=== PATIENT | male | born 1935 | race Two or more races ===

== ENCOUNTER 2017-10-11 13:53 | Inpatient (IN) | payer MEDICARE ==
[~2017-10-11] VITALS: Ht 180.3 cm; Wt 77.6 kg
--- NOTE | 2017-10-11 14:00 | NUR ---
BB SON FOR PSYCH EVAL; PT WAS TALKING TO PHONE COMPANY/BILLING DEPT, AND MENTIONED SOMETHING ABT "HURTING HIMSELF" PER SON. 2 MOS AGO. NAD NOTED, VSS, RESP EVEN AND UNLABORED, PT WAS PUT ON MONITOR, WAITING FOR MD BATRES.
[2017-10-11 14:43] LABS: BASOPHILS % (AUTO) 0.7 % (0.0-2.0); EOSINOPHILS % (AUTO) 4.7 % (0.0-6.0); HEMATOCRIT 32 % (39-51); HEMOGLOBIN 10.6 g/dL (13.5-17.5); LYMPHOCYTES % (AUTO) 15.9 % (20.0-44.0); MEAN CORPUSCULAR HGB CONC 34 g/dl (31.0-36.0); MEAN CORPUSCULAR VOLUME 81 fL (80-96); MONOCYTES # (AUTO) 0.7 /CMM (0.1-1.30); MONOCYTES % (AUTO) 11.2 % (2.0-12.0); NEUTROPHILS # (AUTO) 4.5 /CMM (1.8-8.9); NEUTROPHILS % (AUTO) 67.5 % (43.0-81.0); PLATELET COUNT (AUTO) 169 /CMM (150-450); RDW COEFFICIENT OF VARIATION 15.8 (11.5-15.0); WHITE BLOOD COUNT (AUTO) 6.5 K/uL (4.3-11.0)
[2017-10-11 14:48] LABS: APPEARANCE,URINE Clear (CLEAR); BILIRUBIN,URINE Negative (NEGATIVE); BLOOD, URINE Negative Ery/uL (NEGATIVE); COLOR,URINE Yellow (YELLOW); KETONES,URINE Negative (NEGATIVE); LEUKOCYTE ESTERASE ,URINE Negative (NEGATIVE); NITRITE, URINE Negative (NEGATIVE); PH,URINE 5.5 (5.0-8.0); PROTEIN,URINE 100 mg/dl (NEGATIVE); UGLUCOSE Negative (NEGATIVE); UROBILINOGEN,URINE 0.2 EU/dL (0.2)
[2017-10-11 14:51] LABS: CALCIUM, SERUM 9.7 mg/dL (8.5-10.1); CARBON DIOXIDE 27 mmol/L (21-32); CHLORIDE 108 mmol/L (98-107); CREATININE 1.3 mg/dL (0.6-1.3); GLUCOSE 109 mg/dL (74-106); POTASSIUM 3.9 mmol/L (3.5-5.1); RBC,URINE 0-2 /HPF (0-2); SODIUM SERUM 143 mmol/L (136-145); UREA NITROGEN, BLOOD 24 mg/dL (7-18)
[2017-10-11 14:52] LABS: BACTERIA,URINE None seen /HPF (None Seen); HYALINE CASTS, URINE Few /LPF (None Seen); SQUAMOUS EPITHELIAL CELL,UR Rare /HPF (None Seen); WBC,URINE 0-3 /HPF (0-3)
--- NOTE | 2017-10-11 14:54 | NUR ---
Called Cez[facility] VILLARREALW for psych evaluation.
[2017-10-11 14:56] LABS: ACETAMINOPHEN < 2 ug/ml (10-30); ALANINE AMINOTRANSFERASE 15 U/L (12-78); ALBUMIN 3.5 g/dL (3.4-5.0); ALCOHOL, BLOOD < 3 mg/dL (0-0); ALKALINE PHOSPHATASE 93 U/L (46-116); ASPARTATE AMINOTRANSFERASE 14 U/L (15-37); BILIRUBIN,DIRECT 0.1 mg/dL (0.0-0.2); BILIRUBIN,TOTAL 0.5 mg/dL (0.2-1.0); SALICYLATE 0.4 mg/dL (2.8-20.0); TOTAL PROTEIN, SERUM 6.9 g/dL (6.4-8.2)
[2017-10-11 15:16] LABS: THYROID STIMULATING HORMONE 2.392 uIU/mL (0.358-3.74)
[2017-10-11] MEDS ORDERED: PRAV40TA3 PO (16:54)
[2017-10-11] MEDS ORDERED: LORA0.5T PO (16:54)
[2017-10-11] MEDS ORDERED: FERR325T23 PO (16:54)
[2017-10-11] MEDS ORDERED: BENA20TA9 PO (16:54)
[2017-10-11] MEDS ORDERED: TAMS0.4C34 PO (16:54)
[2017-10-11] MEDS ORDERED: FOLI1TAB16 PO (16:54)
[2017-10-11] MEDS ORDERED: LEVO75TA7 PO (16:54)
[2017-10-11] MEDS ORDERED: CARV12.52 PO (16:54)
[2017-10-11] MEDS ORDERED: AMLO10TA6 PO (16:54)
[2017-10-11] MEDS ORDERED: ALPRAZOLAM 0.25 MG TABLET PO ONE (17:00)
[2017-10-11] MEDS ORDERED: ALPRAZOLAM 0.25 MG TABLET ONE (17:00)
--- NOTE | 2017-10-11 17:30 | NUR ---
GPS/RN PATIENT ADMITTED ON A 5150 HOLD FOR GD UNDER HE CARE OF DR KIRAN HINSON. BOTH DR'S AWARE OF NEW ADMISSION. DR HINSON AWARE OF NEED TO RECONCILE MEDS IN SYSTEM. PER HOLD PATIENT IS DELUSIONAL, DISORGANIZED, PARANOID AND IS EXTREMELY AGITATED OVER LOSS OF CONTROL OVER HIS LIFE AND UNABLE TO PROVIDE CARE FOR HIMSELF. UPON FACE TO FACE ASSESSMENT, PATIENT IS ALERT AND ORIENTED X 1-2, STABLE CONDITION, DISORGANIZED, CONFUSED AND HOSTILE. BELONGINGS AND VALUABLE COLLECTED, SKIN INTACT, PATIENT DENIES SI/HI. AT THIS TIME PATIENT IS IN ROOM AND IS ANXIOUS WITH PERIODS OF AGITATION BUT COOPERATIVE WITH ENCOURAGEMENT AND REDIRECTABLE. WILL CONTINUE TO MONITOR Q 15 MIN FOR SAFETY AND BEHAVIOR.
[2017-10-11] MEDS ORDERED: MAG HYDROX/AL HYDROX/SIMETH 30 ML UDC PO PRN (18:00)
[2017-10-11] MEDS ORDERED: MAGNESIUM HYDROXIDE 30 ML UDC PO PRN (18:00)
[2017-10-11] MEDS ORDERED: ACETAMINOPHEN 325 MG TABLET PO PRN (18:00)
[2017-10-11 18:55] VITALS: BP 162/77
[2017-10-11 20:26] VITALS: BP 120/68
[2017-10-11] MEDS: TAMSULOSIN 0.4 MG CAP.SR.24H PO SCH (22:00)
[2017-10-11] MEDS: ATORVASTATIN 40 MG TABLET PO SCH (22:00)
--- NOTE | 2017-10-12 01:41 | NUR ---
GPS RN NOTES PT. REFUSED NIGHT MEDS FLOMAX,LIPITOR, ENCOURAGED EXPLIANE RISKS AND BENEFITS, STILL REFUSED.
[2017-10-12 06:46] LABS: ALANINE AMINOTRANSFERASE 18 U/L (12-78); ALBUMIN 3.3 g/dL (3.4-5.0); ALKALINE PHOSPHATASE 77 U/L (46-116); ASPARTATE AMINOTRANSFERASE 17 U/L (15-37); BILIRUBIN,TOTAL 0.5 mg/dL (0.2-1.0); CALCIUM, SERUM 8.7 mg/dL (8.5-10.1); CARBON DIOXIDE 24 mmol/L (21-32); CHLORIDE 109 mmol/L (98-107); CREATININE 1.2 mg/dL (0.6-1.3); GLUCOSE 86 mg/dL (74-106); POTASSIUM 3.6 mmol/L (3.5-5.1); SODIUM SERUM 140 mmol/L (136-145); TOTAL PROTEIN, SERUM 6.5 g/dL (6.4-8.2); UREA NITROGEN, BLOOD 22 mg/dL (7-18)
[2017-10-12 07:10] LABS: CHOLESTEROL 134 mg/dL (<200); HDL CHOLESTEROL 55 mg/dL (40-60); LDL 60 mg/dL (0-99); TRIGLYCERIDES 82 mg/dL (30-150)
[2017-10-12 08:00] VITALS: BP 140/55
[2017-10-12] MEDS: LEVOTHYROXINE SODIUM 75 MCG TABLET PO SCH (08:58)
[2017-10-12] MEDS: FERROUS SULFATE (325 MG) 325 MG/TAB TABLET PO SCH ×2 (08:58→16:52)
[2017-10-12] MEDS: FOLIC ACID 1 MG TABLET PO SCH (08:58)
[2017-10-12] MEDS: BENAZEPRIL HCL 20 MG TABLET PO SCH (08:59)
[2017-10-12] MEDS: CARVEDILOL 12.5 MG TABLET PO SCH ×2 (08:59→16:52)
[2017-10-12] MEDS: AMLODIPINE BESYLATE 10 MG TABLET PO SCH (09:00)
[2017-10-12 16:00] VITALS: BP 136/63
--- NOTE | 2017-10-12 16:20 | NUR ---
ERROL spoke with pts son Andrew [phone] who confirmed pt will return the [facility] at [address] [address] . Pts son also provided SW with collateral information and informed SW that he is pts DPOA. ERROL requested DPOA documentation from pts son who agreed to email to ERROL.
[2017-10-12] MEDS: risperiDONE 1 MG TABLET PO SCH (18:30)
[2017-10-12 20:11] VITALS: BP 145/71
[2017-10-12] MEDS: ATORVASTATIN 40 MG TABLET PO SCH (21:31)
[2017-10-12] MEDS: TAMSULOSIN 0.4 MG CAP.SR.24H PO SCH (21:31)
[2017-10-12] MEDS: TEMAZEPAM 7.5 MG CAPSULE PO PRN (23:50)
--- NOTE | 2017-10-13 05:37 | NUR ---
GPS RN NOTES AROUND 0500 OBSERVED PT. LEFT UPPER ARM SKIN TEAR NOTED , CLEANSE WITH NS AND COVERED WITH STRIE STRIPS SUPERVISIOR / CHARGE NURSE AWARE NO ACUTE DISTRESS NOTED , PT. RESTING HIS BED .
[2017-10-13 08:00] VITALS: BP 148/62
[2017-10-13] MEDS: FOLIC ACID 1 MG TABLET PO SCH (08:09)
[2017-10-13] MEDS: risperiDONE 1 MG TABLET PO SCH ×2 (08:09→16:08)
[2017-10-13] MEDS: FERROUS SULFATE (325 MG) 325 MG/TAB TABLET PO SCH ×2 (08:09→16:08)
[2017-10-13] MEDS: AMLODIPINE BESYLATE 10 MG TABLET PO SCH (08:09)
[2017-10-13] MEDS: LEVOTHYROXINE SODIUM 75 MCG TABLET PO SCH (08:09)
[2017-10-13] MEDS: CARVEDILOL 12.5 MG TABLET PO SCH ×2 (08:10→16:08)
[2017-10-13] MEDS: BENAZEPRIL HCL 20 MG TABLET PO SCH (08:10)
--- NOTE | 2017-10-13 09:05 | NUR ---
ERROL received DPOA documentation via email from pts son London Olson [email or web address] SW will place DPOA documentation in pts chart.
--- NOTE | 2017-10-13 10:34 | NUR ---
INITIAL DISCHARGE PLAN: Per pts son, pt will return to [facility] at [address], [place] [address] . ERROL will help form a safe and proper discharge in collaboration with MD and pts son.
[2017-10-13 16:08] VITALS: BP 141/56
[2017-10-13 20:00] VITALS: BP 160/64
[2017-10-13] MEDS: TEMAZEPAM 7.5 MG CAPSULE PO PRN (21:42)
[2017-10-13] MEDS: ATORVASTATIN 40 MG TABLET PO SCH (21:42)
[2017-10-13] MEDS: TAMSULOSIN 0.4 MG CAP.SR.24H PO SCH (21:42)
[2017-10-14 08:16] VITALS: BP 158/74
[2017-10-14] MEDS: risperiDONE 1 MG TABLET PO SCH ×2 (08:57→16:31)
[2017-10-14] MEDS: LEVOTHYROXINE SODIUM 75 MCG TABLET PO SCH (08:57)
[2017-10-14] MEDS: FERROUS SULFATE (325 MG) 325 MG/TAB TABLET PO SCH ×2 (08:57→16:31)
[2017-10-14] MEDS: CARVEDILOL 12.5 MG TABLET PO SCH ×2 (08:58→16:31)
[2017-10-14] MEDS: AMLODIPINE BESYLATE 10 MG TABLET PO SCH (08:58)
[2017-10-14] MEDS: BENAZEPRIL HCL 20 MG TABLET PO SCH (08:58)
[2017-10-14] MEDS: FOLIC ACID 1 MG TABLET PO SCH (08:58)
[2017-10-14 16:18] VITALS: BP 145/73
[2017-10-14 20:00] VITALS: BP 155/77
[2017-10-14] MEDS: TAMSULOSIN 0.4 MG CAP.SR.24H PO SCH (21:48)
[2017-10-14] MEDS: ATORVASTATIN 40 MG TABLET PO SCH (21:48)
[2017-10-14] MEDS: TEMAZEPAM 7.5 MG CAPSULE PO PRN (21:49)
[2017-10-15 08:00] VITALS: BP 139/56
[2017-10-15] MEDS: FOLIC ACID 1 MG TABLET PO SCH (08:32)
[2017-10-15] MEDS: risperiDONE 0.25 MG TABLET PO SCH ×2 (08:32→17:27)
[2017-10-15] MEDS: BENAZEPRIL HCL 20 MG TABLET PO SCH (08:32)
[2017-10-15] MEDS: AMLODIPINE BESYLATE 10 MG TABLET PO SCH (08:33)
[2017-10-15] MEDS: RIVASTIGMINE TARTRATE 1.5 MG CAPSULE PO SCH ×2 (08:33→17:27)
[2017-10-15] MEDS: LEVOTHYROXINE SODIUM 75 MCG TABLET PO SCH (08:33)
[2017-10-15] MEDS: CARVEDILOL 12.5 MG TABLET PO SCH ×2 (08:33→17:28)
[2017-10-15] MEDS: FERROUS SULFATE (325 MG) 325 MG/TAB TABLET PO SCH ×2 (08:33→17:27)
[2017-10-15 16:04] VITALS: BP 162/76
[2017-10-15] MEDS: TAMSULOSIN 0.4 MG CAP.SR.24H PO SCH (21:41)
[2017-10-15] MEDS: ATORVASTATIN 40 MG TABLET PO SCH (21:41)
[2017-10-15] MEDS: LORAZEPAM 0.5 MG TABLET PO PRN (21:42)
[2017-10-15] MEDS: TEMAZEPAM 7.5 MG CAPSULE PO PRN (23:48)
[2017-10-16 09:09] VITALS: BP 137/50
[2017-10-16] MEDS: BENAZEPRIL HCL 20 MG TABLET PO SCH (10:03)
[2017-10-16] MEDS: AMLODIPINE BESYLATE 10 MG TABLET PO SCH (10:03)
[2017-10-16] MEDS: FERROUS SULFATE (325 MG) 325 MG/TAB TABLET PO SCH ×2 (10:04→17:45)
[2017-10-16] MEDS: RIVASTIGMINE TARTRATE 1.5 MG CAPSULE PO SCH ×2 (10:04→17:46)
[2017-10-16] MEDS: LEVOTHYROXINE SODIUM 75 MCG TABLET PO SCH (10:04)
[2017-10-16] MEDS: risperiDONE 0.25 MG TABLET PO SCH ×2 (10:04→17:45)
[2017-10-16] MEDS: FOLIC ACID 1 MG TABLET PO SCH (10:04)
[2017-10-16] MEDS: CARVEDILOL 12.5 MG TABLET PO SCH ×2 (10:05→17:46)
[2017-10-16 15:43] VITALS: BP 146/76
[2017-10-16 20:01] VITALS: BP 143/68
[2017-10-16] MEDS: ATORVASTATIN 40 MG TABLET PO SCH (21:15)
[2017-10-16] MEDS: TAMSULOSIN 0.4 MG CAP.SR.24H PO SCH (21:15)
[2017-10-16] MEDS: TEMAZEPAM 7.5 MG CAPSULE PO PRN (22:02)
[2017-10-17 08:00] VITALS: BP 132/65
[2017-10-17] MEDS: FOLIC ACID 1 MG TABLET PO SCH (08:20)
[2017-10-17] MEDS: RIVASTIGMINE TARTRATE 1.5 MG CAPSULE PO SCH ×2 (08:20→16:01)
[2017-10-17] MEDS: LEVOTHYROXINE SODIUM 75 MCG TABLET PO SCH (08:21)
[2017-10-17] MEDS: risperiDONE 0.25 MG TABLET PO SCH ×2 (08:21→16:01)
[2017-10-17] MEDS: BENAZEPRIL HCL 20 MG TABLET PO SCH (08:21)
[2017-10-17] MEDS: AMLODIPINE BESYLATE 10 MG TABLET PO SCH (08:22)
[2017-10-17] MEDS: FERROUS SULFATE (325 MG) 325 MG/TAB TABLET PO SCH ×2 (08:22→16:01)
[2017-10-17] MEDS: CARVEDILOL 12.5 MG TABLET PO SCH ×2 (08:23→16:56)
--- NOTE | 2017-10-17 16:56 | NUR ---
GPS/RN PATIENT REFUSED TO ALLOW STAFF TO TAKE VITAL SIGNS, COULD NOT ADMINISTER CARVEDILOL 12.5 MG DUE TO NO BP READING. WILL CONTINUE TO MONITOR.
[2017-10-17 20:15] VITALS: BP 176/82
[2017-10-17 21:00] VITALS: BP 144/72
[2017-10-17] MEDS: TEMAZEPAM 7.5 MG CAPSULE PO PRN (21:58)
[2017-10-17] MEDS: TAMSULOSIN 0.4 MG CAP.SR.24H PO SCH (22:06)
[2017-10-17] MEDS: ATORVASTATIN 40 MG TABLET PO SCH (22:07)
[2017-10-18 08:02] VITALS: BP 150/73
[2017-10-18] MEDS: RIVASTIGMINE TARTRATE 1.5 MG CAPSULE PO SCH ×2 (08:27→16:39)
[2017-10-18] MEDS: BENAZEPRIL HCL 20 MG TABLET PO SCH (08:27)
[2017-10-18] MEDS: FOLIC ACID 1 MG TABLET PO SCH (08:27)
[2017-10-18] MEDS: AMLODIPINE BESYLATE 10 MG TABLET PO SCH (08:28)
[2017-10-18] MEDS: LEVOTHYROXINE SODIUM 75 MCG TABLET PO SCH (08:28)
[2017-10-18] MEDS: CARVEDILOL 12.5 MG TABLET PO SCH ×2 (08:28→16:40)
[2017-10-18] MEDS: FERROUS SULFATE (325 MG) 325 MG/TAB TABLET PO SCH ×2 (08:28→16:40)
[2017-10-18] MEDS: risperiDONE 1 MG TABLET PO SCH ×2 (09:57→16:39)
--- NOTE | 2017-10-18 13:58 | NUR ---
ERROL contacted the [facility] [id number] [place] [address], [place] [address] to confirm pts return to the facility. Per Karla Zhang, Inspector Technician she would like to come and assess pt closer to his discharge date; for re admittance to their facility. ERROL will follow up with facility staff in a timely manner.
[2017-10-18 16:28] VITALS: BP 140/70
[2017-10-18 20:22] VITALS: BP_SYST 142; BP_SYST 163; BP_DIAS 73
[2017-10-18] MEDS: LORAZEPAM 0.5 MG TABLET PO PRN (20:26)
--- NOTE | 2017-10-18 20:26 | NUR ---
GPS-RN PATIENT IS ANXIOUS AND RESTLESS. VSS. ADMINISTERED ATIVAN 1MG PO ORDERED. WILL CONTINUE TO MONITOR Q15MIN ROUNDS FOR SAFETY.
[2017-10-18] MEDS: TAMSULOSIN 0.4 MG CAP.SR.24H PO SCH (21:00)
[2017-10-18] MEDS: ATORVASTATIN 40 MG TABLET PO SCH (21:00)
[2017-10-18] MEDS: TEMAZEPAM 7.5 MG CAPSULE PO PRN (21:48)
[2017-10-19 08:14] VITALS: BP 130/59
[2017-10-19] MEDS: FERROUS SULFATE (325 MG) 325 MG/TAB TABLET PO SCH ×2 (08:55→16:44)
[2017-10-19] MEDS: FOLIC ACID 1 MG TABLET PO SCH (08:55)
[2017-10-19] MEDS: LEVOTHYROXINE SODIUM 75 MCG TABLET PO SCH (08:55)
[2017-10-19] MEDS: AMLODIPINE BESYLATE 10 MG TABLET PO SCH (08:55)
[2017-10-19] MEDS: BENAZEPRIL HCL 20 MG TABLET PO SCH (08:55)
[2017-10-19] MEDS: CARVEDILOL 12.5 MG TABLET PO SCH ×2 (08:55→16:44)
[2017-10-19] MEDS: RIVASTIGMINE TARTRATE 1.5 MG CAPSULE PO SCH ×2 (08:55→16:44)
[2017-10-19] MEDS: risperiDONE 1 MG TABLET PO SCH ×2 (08:55→16:43)
--- NOTE | 2017-10-19 11:32 | NUR ---
SW contacted pts psychiatrist, Dr. Honeycutt (via text) for discharge planning purposes. SW inquired about pts discharge plan. SW will follow up.
[2017-10-19 15:41] VITALS: BP 142/67
[2017-10-19 20:39] VITALS: BP 132/68
[2017-10-19] MEDS: ATORVASTATIN 40 MG TABLET PO SCH (21:07)
[2017-10-19] MEDS: TAMSULOSIN 0.4 MG CAP.SR.24H PO SCH (21:07)
[2017-10-19] MEDS: TEMAZEPAM 7.5 MG CAPSULE PO PRN (21:51)
[2017-10-20 07:51] VITALS: BP 127/55
[2017-10-20] MEDS: LEVOTHYROXINE SODIUM 75 MCG TABLET PO SCH (08:10)
[2017-10-20] MEDS: FERROUS SULFATE (325 MG) 325 MG/TAB TABLET PO SCH ×2 (08:10→15:57)
[2017-10-20] MEDS: risperiDONE 1 MG TABLET PO SCH ×2 (08:10→15:58)
[2017-10-20] MEDS: RIVASTIGMINE TARTRATE 1.5 MG CAPSULE PO SCH ×2 (08:10→15:57)
[2017-10-20] MEDS: FOLIC ACID 1 MG TABLET PO SCH (08:10)
[2017-10-20] MEDS: AMLODIPINE BESYLATE 10 MG TABLET PO SCH ×3 (09:00→16:31)
[2017-10-20] MEDS: BENAZEPRIL HCL 20 MG TABLET PO SCH ×2 (09:00→15:56)
[2017-10-20] MEDS: CARVEDILOL 12.5 MG TABLET PO SCH ×2 (09:00→15:53)
--- NOTE | 2017-10-20 09:00 | NUR ---
GPS/RN UNABLE TO ADMINISTER 0900 BP MEDS( AMLODIPINE 10 MG, BENAZAPRIL 20 MG, COREG 12.5 MG) DUE TO DECREASED BP OF 127/55. WILL CONTINUE TO MONITOR.
--- NOTE | 2017-10-20 11:42 | NUR ---
ERROL met with Karla Zhang and Diego from [facility], [address] [place] [id number] after pts assessment. Per Diego, [employer] Technician she agreed to accept pt into their memory care unit on Tuesday due to room availability. ERROL discussed Dr. Honeycutt's discharge orders with Karla and [employer], however they stated not being sure if they had a bed available in the memory unit, "until we get back to the office." Diego agreed to contact ERROL tomorrow morning with an update regarding pts discharge plan. ERROL will follow up.
[2017-10-20 16:00] VITALS: BP 173/77
--- NOTE | 2017-10-20 16:00 | NUR ---
GPS/RN PATIENT BP 177/77, ADMINISTERED MORNING BP MEDS ( AMLODIPINE 10 MG, BENAZAPRIL 20 MG, COREG 12.5) WILL CONTINUE TO MONITOR.
[2017-10-20 17:38] VITALS: BP 164/73
--- NOTE | 2017-10-20 17:39 | NUR ---
GPS/RN BP 164/73, NO DISTRESS NOTED, WILL CONTINUE TO MONITOR.
[2017-10-20 20:00] VITALS: BP 143/65
--- NOTE | 2017-10-20 20:00 | NUR ---
RN NOTES RECEIVED PT AWAKE AND RESTING IN BED. PT CLAM AND COOPERATIVE. NO SIGN OF DISTRESS. WILL CONT TO MONITOR.
[2017-10-20] MEDS: TAMSULOSIN 0.4 MG CAP.SR.24H PO SCH (21:14)
[2017-10-20] MEDS: ATORVASTATIN 40 MG TABLET PO SCH (21:14)
--- NOTE | 2017-10-21 04:34 | NUR ---
GPS note: Patient was walked in hallway confused about where he is. Reoriented. Calm and takes redirection, no complaints. Back sitting in bed now. Will continue to monitor for safety.
--- NOTE | 2017-10-21 06:48 | NUR ---
RN CLOSING NOTES NO SIGNIFICANT CHANGE IN PTS CONDITION OVER SHIFT. ALL MEDS GIVEN, ALL NEEDS ATTENDED. WILL ENDORSE TO AM RN.
[2017-10-21] MEDS: LEVOTHYROXINE SODIUM 75 MCG TABLET PO SCH (07:43)
[2017-10-21 08:30] VITALS: BP 149/68
[2017-10-21] MEDS: FOLIC ACID 1 MG TABLET PO SCH (08:36)
[2017-10-21] MEDS: RIVASTIGMINE TARTRATE 1.5 MG CAPSULE PO SCH ×2 (08:36→16:36)
[2017-10-21] MEDS: risperiDONE 1 MG TABLET PO SCH ×2 (08:36→16:36)
[2017-10-21] MEDS: FERROUS SULFATE (325 MG) 325 MG/TAB TABLET PO SCH ×2 (08:36→16:36)
[2017-10-21] MEDS: CARVEDILOL 12.5 MG TABLET PO SCH ×2 (08:37→16:36)
[2017-10-21] MEDS: BENAZEPRIL HCL 20 MG TABLET PO SCH (08:37)
[2017-10-21] MEDS: AMLODIPINE BESYLATE 10 MG TABLET PO SCH (08:37)
--- NOTE | 2017-10-21 11:34 | NUR ---
ERROL spoke to pts psychiatrist, Dr. Honeycutt who reported having given discharge orders (pt to discharge on this date) to the nursing staff the previous day. ERROL informed Dr. Honeycutt that nursing staff was unaware of pts discharge, including SW. ERROL also informed Dr. Honeycutt that pts facility, [facility] had requested ample time to come an re assess pt. prior to admittance. Dr. Honeycutt agreed that pt could discharge tomorrow, 10/21/2017. ERROL will follow up staff from [facility] for discharge planning purposes. Addendum: 10/21/17 at 1140 by ION NORTON 10/20/2017
--- NOTE | 2017-10-21 11:50 | NUR ---
ERROL contacted Diego, [facility] Hardware Developer for discharge planning purposes. ERROL was informed that she was not available and was then transferred to her voicemail. ERROL left a detailed message asking for a callback.
[2017-10-21 16:00] VITALS: BP 147/62
[2017-10-21 16:36] VITALS: BP 147/62
--- NOTE | 2017-10-21 17:00 | NUR ---
GPS/RN - Discharge Patient discharged to [facility] in stable condition. Reviewed discharge instructions with patient and son Jareth both verbalized full understanding. Discharge paperwork and prescription given to son Jareth. All belongings with the patient and he denies any missing items. Patient refused photos to be taken on his skin breakdown. Patient compliant with medications, calm and cooperative with treatment plans. Patient denies SI/HI, behavior improved, psychiatric treatment plans met, ambulatory with steady gait. Accompanied to the lobby via wheelchair and transported via private care.
--- NOTE | 2017-10-21 18:35 | NUR ---
Discharge Plan: Patient will discharge to the [facility], [address], [place] [address] via private transportation at 4:00 pm. Pts son, Jareth will pick pt up. Pt and family have been notified and are in agreement. Psychiatrist: [facility]; [address] [place] [address]; Truckload Owner Operator: Dr. Lukas Maldonado, [address]. [address] [place] [address]; .
== END 2017-10-21 17:00 | DRG 885 ==
LOC: ER 13:55 → EDBD 16:56 → GPS 16:56
PROVIDERS: ADMIT Psychiatry & Neurology Psychiatry; ATTEND Psychiatry & Neurology Psychiatry
DX: F29 Unspecified psychosis not due to a substance or known physiological condition (principal); Z86.73 Personal history of transient ischemic attack (TIA), and cerebral infarction without residual deficits; F41.9 Anxiety disorder, unspecified; F03.90 Unspecified dementia, unspecified severity, without behavioral disturbance, psychotic disturbance, mood disturbance, and anxiety; E78.5 Hyperlipidemia, unspecified; I10 Essential (primary) hypertension; E03.9 Hypothyroidism, unspecified; Z87.891 Personal history of nicotine dependence; Z96.652 Presence of left artificial knee joint; D64.9 Anemia, unspecified; Z73.6 Limitation of activities due to disability; X58.XXXA Exposure to other specified factors, initial encounter; Y92.9 Unspecified place or not applicable; S41.112A Laceration without foreign body of left upper arm, initial encounter; L57.0 Actinic keratosis
CPT/HCPCS: 36415; 80048-TC; 80053-TC; 80061-TC; 80076-TC; 80305; 81000-TC; 84443-TC; 85025-TC; 87081-TC; A4606; A6402; G0480; Z7610